=== PATIENT | female | born 1960 | race Caucasian/White ===

== ENCOUNTER 2020-03-03 16:52 | Emergency (ER) | payer OTHER ==
[~2020-03-03] VITALS: Ht 170.2 cm; Wt 79.4 kg
[~2020-03-03 16:52] MED LIST: BENADRYL25 MG; FISH OIL 1,001000 M2; FOLIC ACID1 MG PO; IRON325 PO; LOTENSIN20 MG PO; MEDROL DOSPAK21 TAB PO; NATURAL LAXATIV25 MG PO; NATURAL SENNA8.6 MG PO; NORVASC5 MG PO; NYSTATIN1 EA10; ONDANSETRON HCL4 M2 PO; PREDNISOLONE 5 M5 M1 PO; PROAIR HFA8.5 GM; PROBIOTIC1 EAC2 PO; TRINATE TABLET1 TAB; UNICOMPLEX M TA1 TA1 PO; VITAMIN B-12250 MC2; ZYRTEC10 M5 PO
[2020-03-03 18:17] VITALS: BP 151/99
== END 2020-03-03 18:18 | disposition home or self-care (01) ==
LOC: ER 16:52
DX: R13.10 Dysphagia, unspecified (principal); I10 Essential (primary) hypertension; E11.9 Type 2 diabetes mellitus without complications; J45.909 Unspecified asthma, uncomplicated; K21.9 Gastro-esophageal reflux disease without esophagitis; Z88.8 Allergy status to other drugs, medicaments and biological substances